=== PATIENT | female | born 1965 | race Hispanic/Latino ===

== ENCOUNTER 2017-05-18 08:20 | Outpatient (CLI) | payer OTHER ==
--- NOTE | 2017-05-21 12:20 | MMO ---
BILATERAL SCREENING MAMMOGRAM: Date: 05/18/17 HISTORY: Screening. COMPARISON: Mammograms from 03/22/15, 06/13/13, and 05/03/12. TECHNIQUE: Bilateral screening CC and MLO mammograms. This patient's mammogram was interpreted with the assistance of computer-aided detection. FINDINGS: There are scattered fibroglandular densities. There is a new asymmetry seen in left breast, posterior depth, central to the nipple, on the CC only. This was annotated on the exam and measures approximately 4.0 mm. IMPRESSION: BIRADS 0: Incomplete: Need Additional Imaging Evaluation and/or Prior Mammograms for Comparison There is a 3.0 mm asymmetry which is new from the comparison examinations, posterior depth, central t o nipple, in left breast CC only finding. Spot compression ultrasound if deemed necessary is recommen ded. The facility will notify the patient of the need for additional imaging services. POS: [facility]
== END 2017-05-18 08:21 | disposition home or self-care (01) ==
LOC: SCSMAMMO 08:20
PROVIDERS: ATTEND Family Medicine
DX: Z12.31 Encounter for screening mammogram for malignant neoplasm of breast (principal)
CPT/HCPCS: 77067

== ENCOUNTER 2017-06-26 08:08 | Outpatient (CLI) | payer OTHER | END 2017-06-26 08:09 | disposition home or self-care (01) | LOC: BICMAMMO 08:08 | PROVIDERS: ATTEND Family Medicine | DX: N63.0 Unspecified lump in unspecified breast (principal); N64.89 Other specified disorders of breast | CPT/HCPCS: G0279 ==

== ENCOUNTER 2018-07-11 06:03 | Day surgery (SDC) | payer OTHER ==
[2018-07-11] MEDS ORDERED: Fentanyl 100 MCG/2 ML VIAL ONE (06:48)
[2018-07-11] MEDS ORDERED: Midazolam HCl 2 mg/2 ml Vial ONE (06:48)
[2018-07-11] MEDS ORDERED: Lidocaine 1% w/Epinephrine 1:200K 30 ML VIAL ONE (07:09)
[2018-07-11] MEDS ORDERED: PROPOFOL 200 MG/20 ML VIAL ONE (10:50)
--- NOTE | 2018-07-11 12:09 | OP ---
DATE OF PROCEDURE: 07/11/2018 PREOPERATIVE DIAGNOSIS: Left carpal tunnel syndrome. POSTOPERATIVE DIAGNOSIS: Left carpal tunnel syndrome. PROCEDURE PERFORMED: Open carpal tunnel release. ANESTHESIA: Mahesh Bustamante MD. The patient received an LMA with 10 total mL of lidocaine with epinephrine. ANTIBIOTICS: Ancef 2 g. IMPLANTS: None. COMPLICATIONS: None. TOURNIQUET TIME: 6 minutes at 250 mmHg. HISTORY OF PRESENT ILLNESS: Ms. Alcantara is a pleasant 53-year-old female. The patient has been incarcerated. She works with [employer]. The patient has history of bilateral carpal tunnel syndrome based on nerve conduction studies, right greater than left. The patient desired for left carpal tunnel to be released. I discussed with her the risks and benefits of left open carpal tunnel release including pain, scar, bleeding, infection, damage to vital structures, need for further surgeries, failure of procedure, and continued pain despite surgical intervention. The patient understood risks and benefits and elected to proceed. DESCRIPTION OF PROCEDURE: Time-out was performed designating the patient's left upper extremity as the operative site based on site, consents, and marking. After time-out, the patient's tourniquet was brought up for 6 minutes. An incision was made down to proximal Fernandes's cardinal line, proximal to the flexion crease down through skin, down to the palmar fascia, came down to the patient's palmaris brevis, transverse carpal ligament. We released the nerve. I let the tourniquet down and controlled bleeding. I had injected about 3 mL of lidocaine preprocedure with 7 total, postprocedure for a total of 10, closed with nylon sutures, placed a soft tissue dressing. The patient will be followed up in about 10 to 12 days. She will keep her wound covered at all times. She was given Tylenol 3 for pain relief. We will schedule her next procedure after that. Job ID: [id number] MTDD
== END 2018-07-11 09:25 | disposition home or self-care (01) ==
LOC: SDC 06:03
PROVIDERS: ATTEND Orthopaedic Surgery
PROC: 01N50ZZ Release Median Nerve, Open Approach (ICD-10-PCS; principal; 2018-07-11)
DX: G56.02 Carpal tunnel syndrome, left upper limb (principal)
CPT/HCPCS: J0690; J2250; J3010

== ENCOUNTER 2018-12-31 05:39 | Day surgery (SDC) | payer OTHER ==
[2018-12-31 06:33] LABS: #Basophils 0.1 thou/uL (0.0-0.2); #Eosinphils 0.3 thou/uL (0.0-0.7); #Lymphocytes 2.3 thou/uL (1.20-3.40); #Monocytes 0.7 thou/uL (0.11-0.59); #Neutrophils 5.1 thou/uL (1.40-6.50); %Basophils 0.8 % (0.0-1.0); %Eosinophils 3.3 % (0.0-10.0); %Lymphocytes 27.9 % (21.0-51.0); %Monocytes 7.8 % (0.0-10.0); %Neutrophils 60.3 % (42.0-75.0); Hemoglobin 12.2 g/dL (12.0-16.0); Mean Corpuscular HGB CONC 32.2 g/dL (32.0-36.0); Mean Corpuscular Hemoglobin 27.4 pg (27.0-31.0); Mean Platelet Volume 7.2 fL (7.4-10.4); Platelet Count 249 thou/uL (130-400); RBC Distribution Width 13.1 % (11.5-14.5); Red Blood Cell (RBC) Count 4.45 mill/uL (4.20-5.40); White Blood Cell (WBC) Count 8.4 thou/uL (4.8-10.8)
[2018-12-31] MEDS ORDERED: Lidocaine 1% w/Epinephrine 1:100K 20 ML VIAL ONE (07:50)
[2018-12-31] MEDS ORDERED: Fentanyl 100 MCG/2 ML VIAL ONE (07:56)
[2018-12-31] MEDS ORDERED: Morphine 2 MG/ML SYRINGE ONE (11:03)
[2018-12-31] MEDS ORDERED: Acetaminophen/Codeine 30-300mg Tablet ONE (11:03)
[2018-12-31] MEDS ORDERED: PROPOFOL 200 MG/20 ML VIAL ONE (12:15)
[2018-12-31] MEDS ORDERED: Ondansetron PF 4 MG/2 ML Vial ONE (12:15)
[2018-12-31] MEDS ORDERED: Ketorolac Tromethamine 30 MG/ML VIAL ONE (12:15)
[2018-12-31] MEDS ORDERED: Lidocaine 1% PF 5 ML VIAL ONE (12:15)
--- NOTE | 2018-12-31 15:21 | OP ---
DATE OF PROCEDURE: 12/31/2018 PREOPERATIVE DIAGNOSES: 1. Right carpal tunnel syndrome. 2. Right trigger thumb. POSTOPERATIVE DIAGNOSES: 1. Right carpal tunnel syndrome. 2. Right trigger thumb. PROCEDURES PERFORMED: 1. Right open carpal tunnel release. 2. Right trigger thumb release. FONDANT COOKER: None. ANESTHESIOLOGIST: Dr. Asher. ANESTHESIA: The patient received an LMA. ESTIMATED BLOOD LOSS: 10 mL. TOURNIQUET TIME: 22 minutes at 250 mmHg. ANTIBIOTICS: Ancef 2 g. COMPLICATIONS: None. HISTORY OF PRESENT ILLNESS: Ms. Alcantara is a 53-year-old female with a history of right carpal tunnel syndrome and trigger thumb symptoms for over a month. I discussed with her preoperatively the risks and benefits of surgery to include pain, scar, bleeding, infection, damage to vital structures including nerve as well as digital nerve to the thumb. I discussed the risk of need for further surgeries, loss of life or limb. The patient understood the risks and benefits and elected to proceed. DESCRIPTION OF PROCEDURE: Time-out was performed designating the patient's right upper extremity as the operative site based on site, consents, and marking. After time-out, the patient's right upper extremity was prepped and draped in sterile fashion. Tourniquet was brought up and left for 22 minutes. On my first procedure, I made incision right over the flexor crease of the thumb transversely just through skin, bluntly dissected down, retracting distally and exposing the patient's A1 autumn. Resected the entirety of the A1 autumn proximally and distally, pulled the tendon sheath into the wound. I was able to complete and was satisfied with my complete release. I washed and then I closed with 3-0 nylon with horizontal mattress and simple sutures. I moved to the hand. Procedure #2: I moved to the wrist and rosalind out my line on the radial border of the fourth ray, proximal to Fernandes's cardinal line, down through skin, came down through the fat, came to the palmar fascia, came through the palmar fascia, came to the pronator quadratus, came down through the muscle down through the transverse carpal ligament, exposed the nerve, ensured proximally it has been released. I washed, I closed with 3-0 nylon. I let the tourniquet down. I injected the thumb with 3 mL in the wrist with 6 mL of 1% lidocaine with epinephrine. The patient was placed on soft tissue dressing. She will use ibuprofen and Tylenol No. 3 as needed for pain. She will follow up with me in about 10 to 12 days for suture removal. Job ID: [id number]
== END 2018-12-31 12:00 | disposition home or self-care (01) ==
LOC: SDC 05:39
PROVIDERS: ATTEND Orthopaedic Surgery
PROC: 0LN70ZZ Release Right Hand Tendon, Open Approach (ICD-10-PCS; principal; 2018-12-31)
PROC: 01N50ZZ Release Median Nerve, Open Approach (ICD-10-PCS; principal; 2018-12-31)
DX: G56.01 Carpal tunnel syndrome, right upper limb (principal); M65.311 Trigger thumb, right thumb
CPT/HCPCS: 36415; 85025; J0690; J2001; J2270; J3010

== ENCOUNTER 2019-06-04 08:14 | Outpatient (CLI) | payer OTHER ==
--- NOTE | 2019-06-04 09:45 | CT ---
CT ABDOMEN AND PELVIS WITHOUT AND WITH IV CONTRAST: HISTORY: Hematuria. FINDINGS: Each renal collecting system, ureter, and the urinary bladder are decompressed. At the inferior pole of the left kidney, a 0.7 cm calculus is present within a nondilated calyx. No stones on the right. No filling defect is evident within the urinary collecting system on the delayed images. A 0.8 cm exophytic cyst projects from the inferior pole of the left kidney. Scattered diverticula of the colon without adjacent inflammation. No free air or free fluid. Circular radiopaque device at the upper vaginal vault is consistent with a prosthetic support device. IMPRESSION: 1. Nonobstructing left renal calculus, 7 mm. 2. Mild diverticulosis. No evidence of diverticulitis. POS: [facility]
[2019-06-04] MEDS ORDERED: Iopamidol-370 76% 500 ML 1 ML ONE (15:17)
== END 2019-06-04 08:15 | disposition home or self-care (01) ==
LOC: BICCT 08:14
PROVIDERS: ATTEND Family Medicine
DX: N02.9 Recurrent and persistent hematuria with unspecified morphologic changes (principal); N20.0 Calculus of kidney; K57.30 Diverticulosis of large intestine without perforation or abscess without bleeding
CPT/HCPCS: 74178; Q9967